=== PATIENT | male | born 1965 | race Caucasian/White ===

== ENCOUNTER 2023-06-06 09:39 | Outpatient (CLI) | payer BC ==
[2023-06-06 10:38] LABS: Bilirubin Neg (Negative); Blood, Urine Negative (Negative); Clarity Clear (Clear); Glucose, Urine (Dipstick) Normal (Negative); Ketone, Urine Negative (Negative); Leukocyte Negative (Negative); Nitrite Negative (Negative); Protein, Urine (Dipstick) Negative (Neg-Trace); Specific Gravity, Urine 1.015 (1.005-1.030); Urobilinogen Normal mg/dL (Less than 2)
[2023-06-06 10:40] LABS: Hematocrit 42.3 % (38.8-50.0); Hemoglobin 14.4 g/dL (13.5-17.5); Mean Corpuscular Hemoglobin 31.2 pg (27.0-33.0); Mean Corpuscular Volume 91.8 fl (81.2-95.1); Mean Platelet Volume 9.6 fl (7.4-10.4); Platelet Count 257 10x3/uL (150-450); RBC Distribution Width 11.5 % (11.5-14.5); Red Blood Cell (RBC) Count 4.61 10x6/uL (4.32-5.72); White Blood Cell (WBC) Count 5.3 10x3/uL (3.5-10.5)
[2023-06-06 11:09] LABS: Anion Gap 15 mmol/L (10-20); BUN (Urea Nitrogen) 15 mg/dL (8.4-25.7); Calc. Creatinine Clearance 0 mL/min (70-130); Calcium 9.3 mg/dL (7.8-10.44); Carbon Dioxide 24 mmol/L (22-29); Chloride 105 mmol/L (98-107); Estimated GFR 102; Glucose 92 mg/dL (70-105); Potassium 4.6 mmol/L (3.5-5.1); Sodium 139 mmol/L (136-145)
[2023-06-06 11:18] LABS: Prothrombin Time 10.9 sec (9.5-12.1)
== END 2023-06-06 09:40 | disposition home or self-care (01) ==
LOC: LABBT 09:39
PROVIDERS: ATTEND Orthopaedic Surgery
DX: Z01.818 Encounter for other preprocedural examination (principal); M17.11 Unilateral primary osteoarthritis, right knee
CPT/HCPCS: 71046; 80048; 81003; 85027; 85610; 87081; 93005; 93010

== ENCOUNTER 2023-06-19 05:43 | Observation (INO) | payer BC ==
[2023-06-06 10:26] VITALS: BMI 27.1
[2023-06-19] MEDS ORDERED: Tranexamic Acid 1,000 MG/10 ML VIAL ONE ×2 (06:04→09:59)
[2023-06-19] MEDS ORDERED: Sodium Chloride 0.9% 100 ML ONE ×2 (06:05→06:52)
[2023-06-19] MEDS ORDERED: Vancomycin (BATCH) 1.5 GM/300 ML BAG ONE (06:05)
[2023-06-19] MEDS ORDERED: EPINEPHrine 1 MG/ML VIAL ONE (06:36)
[2023-06-19] MEDS ORDERED: Lidocaine 1% (PF) 30 ML VIAL ONE ×2 (06:37→07:16)
[2023-06-19] MEDS ORDERED: Midazolam HCl 2 mg/2 ml Vial ONE (06:37)
[2023-06-19] MEDS ORDERED: fentaNYL 50 mcg/mL 1 mL Vial ONE ×2 (06:37→07:54)
[2023-06-19] MEDS ORDERED: Bupivacaine PF 0.5% 30 ML VIAL ONE (06:38)
[2023-06-19] MEDS ORDERED: Scopolamine 1 mg/72 hour Patch ONE (06:49)
[2023-06-19] MEDS ORDERED: Famotidine/PF 20 mg/2ml Vial ONE (06:49)
[2023-06-19] MEDS ORDERED: Bupivacaine 0.25% HCL 30 ML VIAL ONE (06:51)
[2023-06-19] MEDS ORDERED: CEFAZOLIN 2 GM VIAL ONE (06:52)
[2023-06-19] MEDS ORDERED: PROPOFOL 20 ML ONE (07:07)
[2023-06-19] MEDS ORDERED: Lidocaine 1% PF 5 ML VIAL ONE ×2 (07:08→07:35)
[2023-06-19] MEDS ORDERED: Dexamethasone 20 MG/5 ML VIAL ONE ×2 (07:08→07:35)
[2023-06-19] MEDS ORDERED: Ondansetron PF 4 MG/2 ML Vial ONE ×2 (07:08→07:35)
[2023-06-19] MEDS ORDERED: methylPREDNISolone Acetate 40 mg/ml Vial ONE (07:22)
[2023-06-19] MEDS ORDERED: diphenhydrAMINE 25 MG CAP PO PRN (07:25)
[2023-06-19] MEDS ORDERED: HYDROcodone/Acetaminophen 10/325 mg Tablet PO PRN ×3 (07:25→07:45)
[2023-06-19] MEDS ORDERED: traMADol HCl 50 MG TAB PO PRN ×3 (07:25→07:45)
[2023-06-19] MEDS ORDERED: Zolpidem Tartrate 5 MG TAB PO PRN ×2 (07:25→07:45)
[2023-06-19] MEDS ORDERED: Ondansetron PF 4 MG/2 ML Vial IVP PRN ×2 (07:25→07:45)
[2023-06-19] MEDS ORDERED: Acetaminophen 325 MG TAB PO PRN (07:25)
[2023-06-19] MEDS ORDERED: Promethazine HCl 25 MG/ML VIAL IM PRN ×3 (07:25→09:16)
[2023-06-19] MEDS ORDERED: fentaNYL 50 mcg/mL 1 mL Vial SLOW IVP PRN ×2 (07:25→07:39)
[2023-06-19] MEDS ORDERED: Tranexamic Acid 1,000 MG in Sodium Chloride 0.9% 100 ML IVPB SCH (07:30)
[2023-06-19] MEDS ORDERED: Ketorolac Tromethamine 30 MG/ML VIAL ONE ×2 (07:35→09:02)
[2023-06-19] MEDS ORDERED: Glycopyrrolate 0.2 MG/ML 5 ML SYRINGE ONE ×2 (07:35→07:52)
[2023-06-19] MEDS ORDERED: PROPOFOL 200 MG/20 ML VIAL ONE (07:35)
[2023-06-19] MEDS ORDERED: Ropivacaine 0.2% 550 ML 550 ML NERVE BLCK SCH (07:45)
[2023-06-19] MEDS ORDERED: Ondansetron HCl/PF 4 MG/2 ML Vial IVP PRN (09:16)
[2023-06-19] MEDS ORDERED: fentaNYL PF 100 MCG/2 ML SYRINGE ONE (10:13)
[2023-06-19] MEDS: Sodium Chloride 0.9% 1,000 ML IV SCH ×2 (11:30→14:08)
[2023-06-19] MEDS: Multivitamin W/ Minerals 1 TAB PO SCH (11:45)
[2023-06-19] MEDS: Aspirin 81 mg Enteric Coated Tablet PO SCH ×2 (11:45→21:41)
[2023-06-19] MEDS: Ferrous Gluconate 324 MG TAB PO SCH ×2 (11:45→21:41)
[2023-06-19] MEDS: Loratadine 10 MG TAB PO SCH (11:45)
[2023-06-19] MEDS: Senokot S 8.6-50 MG TAB PO SCH ×2 (11:46→21:41)
[2023-06-19] MEDS ORDERED: Ketorolac Tromethamine 30 MG/ML VIAL IVP SCH ×2 (12:00→14:00)
[2023-06-19] MEDS: Ketorolac Tromethamine 30 MG/ML VIAL IVP SCH ×2 (14:02→21:41)
[2023-06-19] MEDS: CEFAZOLIN 2 GM in Sodium Chloride 0.9% 100 ML IVPB SCH ×2 (14:04→23:52)
[2023-06-19] MEDS ORDERED: Vancomycin (BATCH) 1.5 GM in Premix 1 BAG IVPB SCH (18:00)
[2023-06-20] MEDS: Sodium Chloride 0.9% 1,000 ML IV SCH ×2 (03:30→12:42)
[2023-06-20] MEDS: Ketorolac Tromethamine 30 MG/ML VIAL IVP SCH ×2 (03:36→08:38)
[2023-06-20 06:18] LABS: Hematocrit 33.5 % (42.0-52.0); Hemoglobin 11.4 g/dL (14.0-18.0); Mean Corpuscular Hemoglobin 31.9 pg (27.0-31.0); Mean Corpuscular Volume 93.8 fl (78.0-98.0); Mean Platelet Volume 9.5 fL (7.4-10.4); Platelet Count 175 10x3/uL (130-400); RBC Distribution Width 11.6 % (11.5-14.5); Red Blood Cell (RBC) Count 3.57 mill/uL (4.70-6.10); White Blood Cell (WBC) Count 9.3 10x3/uL (4.8-10.8)
[2023-06-20] MEDS: Aspirin 81 mg Enteric Coated Tablet PO SCH (08:37)
[2023-06-20] MEDS: Multivitamin W/ Minerals 1 TAB PO SCH (08:38)
[2023-06-20] MEDS: Senokot S 8.6-50 MG TAB PO SCH (08:38)
[2023-06-20] MEDS: Loratadine 10 MG TAB PO SCH (08:38)
[2023-06-20] MEDS: Ferrous Gluconate 324 MG TAB PO SCH (08:38)
[2023-06-20] MEDS: HYDROcodone/Acetaminophen 10/325 mg Tablet PO PRN ×2 (08:43→12:43)
[2023-06-20 11:29] VITALS: BP 123/78; TEMP 98.1
[2023-06-22] MEDS ORDERED: CeleCOXIB 100 MG CAP PO SCH (09:00)
== END 2023-06-20 13:36 | disposition home or self-care (01) ==
LOC: SDC 05:43 → SURG B 11:30
PROVIDERS: ADMIT Orthopaedic Surgery; ATTEND Orthopaedic Surgery
PROC: 0S9D3ZZ Drainage of Left Knee Joint, Percutaneous Approach (ICD-10-PCS; principal; 2023-06-20)
PROC: 0SRC0JZ Replacement of Right Knee Joint with Synthetic Substitute, Open Approach (ICD-10-PCS; 2023-06-20)
DX: M17.0 Bilateral primary osteoarthritis of knee (principal); Z90.49 Acquired absence of other specified parts of digestive tract; Z90.89 Acquired absence of other organs; Z98.890 Other specified postprocedural states
CPT/HCPCS: 36415; 85027; 86850; 86900; 86901; A4306; C1713; C1776; J0171; J1030; J1100; J1885; J2001; J2250; J2405; J2704; J2795; J3010; J3370; J3490; J7050; S0020; S0028